=== PATIENT | female | born 1985 | race Caucasian/White ===

== ENCOUNTER 2017-04-06 02:15 | Inpatient (IN) | payer BC ==
[2017-04-06] MEDS ORDERED: TERBUTALINE 1 MG/ML VIAL SQ PRN (03:00)
[2017-04-06] MEDS ORDERED: CARBOPROST TROMETHAMINE 250 MCG/ML 1 ML AMP IM PRN (03:00)
[2017-04-06] MEDS ORDERED: LIDOCAINE 1% (PF) 10 MG/ML (30 ML SDV) SQ PRN (03:00)
[2017-04-06] MEDS ORDERED: OXYTOCIN 10 UNIT/ML 1 ML VIAL IM PRN (03:00)
[2017-04-06] MEDS ORDERED: OXYTOCIN 20 UNITS/1000 ML NS 1,000 ML IV SCH ×2 (03:00→16:45)
[2017-04-06] MEDS ORDERED: PENICILLIN G POTASSIUM 5,000,000 UNIT in DEXTROSE 5% IN WATER 100 ML IVPB STA ×2 (03:00)
[2017-04-06] MEDS ORDERED: METHYLERGONOVINE 0.2 MG/ML 1 ML AMP IM PRN (03:00)
[2017-04-06] MEDS: LACTATED RINGERS 1,000 ML IV SCH (03:46)
[2017-04-06 03:56] VITALS: BMI 27.2
[2017-04-06 03:57] LABS: Anisocytosis Slight; Basophils % (A) 0 %; CH 26.4; CHCM 32.3; Eosinophils # (A) 0.2 k/uL (0-0.7); Eosinophils % (A) 1 %; HDW 2.59; HGB 10.3 gm/dL (11.4-16.0); Luc # (Auto) 0.17; Luc % (Auto) 1; Lymphocytes # (A) 1.5 k/uL (1.0-4.8); Lymphocytes % (A) 10 %; MCH 26.5 pg (25.0-35.0); MCHC 32.2 g/dL (31.0-37.0); MCV 82.2 fL (80.0-100.0); Mean Platelet Volume 8.7; Monocytes % (A) 7 %; Neutrophils # (A) 12.4 k/uL (1.3-7.7); Neutrophils % (A) 81 %; RDW 16.5 % (11.5-15.5); WBC 15.3 k/uL (3.8-10.6)
[2017-04-06] MEDS ORDERED: BUTORPHANOL 1 MG/ML 1 ML VIAL IV PRN (05:40)
--- NOTE | 2017-04-06 05:40 | P.HPOB ---
History of Present Illness H&P Date: 04/06/17 Chief Complaint: 36-6/7 weeks, spontaneous rupture of membranes The patient is a 31-year-old 8 para 2051 admitted at 36-6/7 weeks as established by last menstrual period and confirmed by second trimester ultrasound. Her has been uncomplicated to this point though she is known to be group B strep positive. She presents to labor and delivery with concerns for rupture of membranes which is confirmed in triage. The at the time of admission, she was having minimal contractions. From a status standpoint, all signs reassuring. Obstetrical history: 8 para 2051 with 2 term vaginal deliveries without complications. She also has had 5 previous early losses, one of which was an ectopic for which she underwent salpingectomy. D&C was carried out on at least 2 occasions. Current statistics are listed in history present illness. EDC of 04/28/2017 was established by last menstrual period and confirmed by a second trimester ultrasound. Laboratory workup demonstrates a blood type of O+ with a negative antibody screen. Rubella status is immune. Remainder of her laboratory workup was within normal limits. One hour Glucola was normal and group B strep status is positive. Gynecologic history: Unremarkable with no history of any infections to include STDs. Review of Systems Review of systems is confined to history of present illness. Past Medical History Past Medical History: No Reported History Additional Past Medical History / Comment(s): ectopic History of Any Multi-Drug Resistant Organisms: None Reported Additional Past Surgical History / Comment(s): fallopian tube removed Past Anesthesia/Blood Transfusion Reactions: No Reported Reaction Past Psychological History: Anxiety, Depression Smoking Status: Former smoker Past Alcohol Use History: None Reported Past Drug Use History: None Reported - Past Family History Mother Family Medical History: No Reported History Medications and Allergies Home Medications Medication Instructions Recorded Confirmed Type Pnv,Calcium 72/Iron/Folic Acid 1 tab DAILY 04/06/17 04/06/17 History [ Plus Tablet] Allergies Allergy/AdvReac Type Severity Reaction Status Date / Time codeine Allergy Unknown Verified 04/06/17 02:34 Exam - Vital Signs Vital signs: Vital Signs Temp Pulse Resp BP Pulse Ox 04/06/17 02:59 98.6 F 100 16 131/61 100 04/06/17 02:55 98.6 F 100 16 131/61 100 Intake and Output 04/05/17 04/05/17 04/06/17 14:59 22:59 06:59 Other: Weight 76.657 kg Patient Weight 04/06/17 06:59 Weight 76.657 kg In general, this is a well-developed, well-nourished white female in no acute distress. Her heart has a regular rhythm and rate without murmur. Her lungs are clear to auscultation bilaterally in all rodriguez. Her abdomen is gravid, nondistended, has normal active bowel sounds, is soft, nontender, and without any palpable masses aside from the uterine fundus. Her extremities are without any cyanosis, clubbing, or significant edema and are nontender to palpation bilaterally. Digital cervical examination performed by the nursing staff demonstrates her cervix to be 1 cm dilated, 60% effaced, with the vertex in presentation at -2 station. Spontaneous rupture of membranes is confirmed. Results Result Diagrams: 04/06/17 03:35 Abnormal Lab Results - Last 24 Hours (Table) 04/06/17 Range/Units 03:35 WBC 15.3 H (3.8-10.6) k/uL Hgb 10.3 L (11.4-16.0) gm/dL Hct 32.0 L (34.0-46.0) % RDW 16.5 H (11.5-15.5) % Neutrophils # 12.4 H (1.3-7.7) k/uL Assessment and Plan (1) premature rupture of membranes Current Visit: Yes Status: Acute Code(s): O42.919 - PRETRM EDIN ROM, UNSP TIME BETW RUPT AND ONST LABR, UNSP TRI SNOMED Code(s): 398332588 (2) Group B streptococcal infection in Current Visit: Yes Status: Acute Code(s): O98.819 - OTH MATERNAL INFEC/ PARASTC DISEASES COMP PREG, UNSP TRI; B95.1 - STREPTOCOCCUS, GROUP B, CAUSING DISEASES CLASSD ELSWHR SNOMED Code(s): 393920118 Plan: Antibiotic prophylaxis has been started for group B strep. She was observed for several hours before spontaneous onset of labor. As this has not occurred, Pitocin augmentation has been started. She will continue to have close maternal and surveillance and expectant management will be practiced. She is a good candidate for either IV or epidural analgesia, whichever she may choose.
[2017-04-06] MEDS: PENICILLIN G POTASSIUM 2,500,000 UNIT in DEXTROSE 5% IN WATER 100 ML IVPB SCH ×6 (07:31→15:25)
[2017-04-06] MEDS ORDERED: SODIUM CHLORIDE 0.9% 100 ML BAG ONE (13:50)
[2017-04-06] MEDS ORDERED: fentaNYL (PF) 50 MCG/ML 5 ML AMP ONE (13:50)
[2017-04-06] MEDS ORDERED: BUPIVACAINE (PF) 0.25% 30 ML VIAL ONE (13:50)
[2017-04-06] MEDS ORDERED: diphenhydrAMINE 50 MG/ML 1 ML VIAL IVP PRN ×2 (16:45)
[2017-04-06] MEDS ORDERED: BENZOCAINE/MENTHOL SPRAY 1 GM/SPRAY AEROSOL TOPICAL PRN (16:45)
[2017-04-06] MEDS ORDERED: diphenhydrAMINE 50 MG CAP PO PRN (16:45)
[2017-04-06] MEDS ORDERED: ACETAMINOPHEN TAB 325 MG TAB PO PRN (16:45)
[2017-04-06] MEDS ORDERED: LANOLIN CREAM 5 GM TUBE TOPICAL PRN (16:45)
[2017-04-06] MEDS ORDERED: WITCH HAZEL 1 EACH MED..PAD TOPICAL PRN (16:45)
[2017-04-06] MEDS ORDERED: ZOLPIDEM 5 MG TAB PO PRN (16:45)
[2017-04-06] MEDS ORDERED: HYDROCORTISONE 2.5% RECTAL CREAM 30 GM TUBE RECTAL PRN (16:45)
[2017-04-06] MEDS ORDERED: diphenhydrAMINE 25 MG CAP PO PRN (16:45)
[2017-04-06] MEDS ORDERED: SIMETHICONE 80 MG CHEWABLE PO PRN (16:45)
--- NOTE | 2017-04-06 16:53 | P.PROBDLV ---
Vaginal Delivery Note - . Vaginal Delivery Note: Pt progressed to complete and began pushing over intact perineum. Pre op Dx: IUP 36 6/7, SROM, GBS pos Post op dx: same Procedure: , pitocin induction of labor surgeon Aura Strong DO anesthesia: epidural EBL; 200cc Findings: male infant in OA presentation, wt 7-3 @ 16:31 apgars 9,9 at 1 and 5 mins respectively. "louise" placenta delivered spontaneously with 3VC. Mother and tolerated delivery well Specimen;none complications; none
[2017-04-06] MEDS: IBUPROFEN 600 MG TAB PO PRN (19:29)
[2017-04-06] MEDS: SENNOSIDES-DOCUSATE SODIUM 1 EACH TAB PO SCH (20:15)
[2017-04-07] MEDS: IBUPROFEN 600 MG TAB PO PRN (06:50)
[2017-04-07] MEDS: SENNOSIDES-DOCUSATE SODIUM 1 EACH TAB PO SCH ×2 (08:58→20:37)
--- NOTE | 2017-04-07 10:18 | P.PNOBGVD ---
Subjective - Subjective Principal diagnosis: PPD #1 Interval history: Sarah is PPD #1 , she is feeling well, no concerns. she is without difficulty, lochia is minimal. she is ambulating and voiding without difficulty. pain is controlled with oral medications. she states they are watching louise due to blood in his stools. he had some blood in his meconium. he is doing well otherwise. Patient reports: Reports appetite normal, Reports voiding normally, Reports pain well controlled, Reports ambulating normally : doing well (they are watching his stools secondary to blood. he is at the bedside with mom) Objective - Latest Vital Signs Latest vital signs: Vital Signs Temp Pulse Resp BP BP Pulse Ox 04/07/17 08:00 85 18 97/63 96 04/07/17 04:00 98.2 F 70 16 95/55 04/07/17 00:00 98.4 F 78 16 95/58 04/06/17 20:00 98.8 F 80 16 102/58 04/06/17 18:39 82 16 99/51 04/06/17 18:15 86 16 103/60 04/06/17 17:45 68 16 97/47 04/06/17 17:30 81 16 99/57 04/06/17 17:15 84 16 100/69 04/06/17 17:00 77 16 104/54 04/06/17 16:45 98.2 F 90 16 124/58 Intake and Output 04/06/17 04/07/17 04/07/17 22:59 06:59 14:59 Other: # Voids 1 1 - Exam Extremities: Present: normal Abdomen: Present: normal appearance Uterus: Present: firm Assessment and Plan (1) Group B streptococcal infection in Current Visit: Yes Status: Acute Code(s): O98.819 - OTH MATERNAL INFEC/ PARASTC DISEASES COMP PREG, UNSP TRI; B95.1 - STREPTOCOCCUS, GROUP B, CAUSING DISEASES CLASSD ELSWHR SNOMED Code(s): 728563005 (2) premature rupture of membranes Narrative/Plan: will continue current PP care. she does desire circumcision if peds clears louise Current Visit: Yes Status: Acute Code(s): O42.919 - PRETRM EDIN ROM, UNSP TIME BETW RUPT AND ONST LABR, UNSP TRI SNOMED Code(s): 796920180
[2017-04-07] MEDS: LACTATED RINGERS 1,000 ML IV SCH ×2 (20:35→20:36)
[2017-04-07] MEDS: PENICILLIN G POTASSIUM 2,500,000 UNIT in DEXTROSE 5% IN WATER 100 ML IVPB SCH ×2 (20:38)
[2017-04-08] MEDS: SENNOSIDES-DOCUSATE SODIUM 1 EACH TAB PO SCH (08:35)
--- NOTE | 2017-04-08 10:29 | P.DS ---
Providers Date of admission: 04/06/17 02:43 Expected date of discharge: 04/08/17 Attending physician: Alyx Mercado Primary care physician: Stated None - Discharge Diagnosis(es) (1) premature rupture of membranes Current Visit: Yes Status: Acute (2) Group B streptococcal infection in Current Visit: Yes Status: Acute (3) Normal spontaneous vaginal delivery Current Visit: Yes Status: Acute Hospital Course: The patient is a 31-year-old 8 para 2051 admitted at 36-6/7 weeks by good dating parameters perches admitted with documented spontaneous rupture of membranes for clear fluid. She presented with minimal contractions and all signs reassuring. Her was otherwise uncomplicated though she was group B strep positive. As result, she had antibiotic prophylaxis started. As she made no significant progress over the first several hours of her admission and the first dose of antibiotics had been completely infused, Pitocin augmentation was added. She then made fairly steady progress throughout the day. An epidural catheter was placed for analgesia and she ultimately progressed to complete and then pushed fairly quickly to a normal spontaneous vaginal delivery of a viable 7 lbs. 3 oz. baby boy with Apgars of 9 at 1 minute and 9 at 5 minutes. Her course was essentially unremarkable with vital signs remaining stable and her temperature was afebrile throughout. The was noted to have some blood in stools and some coffee grounds discharge on suctioning of the stomach. At the time of delivery, the amniotic membranes appeared to be still intact in front of the head and were ruptured artificially demonstrating some bloody fluid. As result of these findings, the 's concerns were thought to be secondary to a possible undiagnosed marginal abruption of placenta. In either case, the patient was deemed stable for discharge on day #2 and was discharged home to follow-up in the office in 6 weeks' time routinely. Discharge instructions included calling for any significantly increased bleeding or foul-smelling lochia, fever, abdominal pain, perineal complaints, breast complaints, or anything else that concerned her. She was additionally instructed to have nothing in the vagina for at least 6 weeks time to include intercourse. She understood her instructions and agrees to follow up as noted above. Discharge medications included continued vitamins as she has opted to breast-feed. She was otherwise to use [id number] analgesic pain medications as needed. Maternal blood type is O + and rubella status is immune. Procedures: #1. Antibiotic prophylaxis #2. Epidural analgesia #3. Pitocin augmentation # 4. Normal spontaneous vaginal delivery Patient Condition at Discharge: Good Plan - Discharge Summary New Discharge Prescriptions: No Action Pnv,Calcium 72/Iron/Folic Acid [ Plus Tablet] 1 tab DAILY Discharge Medication List Pnv,Calcium 72/Iron/Folic Acid [ Plus Tablet] 1 tab DAILY 04/06/17 [ History] Follow up Appointment(s)/Referral(s): Alyx Mercado MD [STAFF PHYSICIAN] - 6 Weeks Discharge Disposition: HOME SELF-CARE
[2017-04-08 16:26] VITALS: BP 106/62; PULSE 81; RESP 17; TEMP 98.5
== END 2017-04-08 20:15 | disposition home or self-care (01) | DRG 775 ==
LOC: FBPOP 02:15 → 4FBP 02:43
PROVIDERS: ADMIT Obstetrics & Gynecology; ATTEND Obstetrics & Gynecology
PROC: 10E0XZZ Delivery of Products of Conception, External Approach (ICD-10-PCS; principal; 2017-04-06)
PROC: 3E0R3BZ Introduction of Anesthetic Agent into Spinal Canal, Percutaneous Approach (ICD-10-PCS; principal; 2017-04-06)
PROC: 00HU33Z Insertion of Infusion Device into Spinal Canal, Percutaneous Approach (ICD-10-PCS; principal; 2017-04-06)
DX: O42.913 Preterm premature rupture of membranes, unspecified as to length of time between rupture and onset of labor, third trimester (principal); O26.20 Pregnancy care for patient with recurrent pregnancy loss, unspecified trimester; Z37.0 Single live birth; O99.824 Streptococcus B carrier state complicating childbirth; Z3A.36 36 weeks gestation of pregnancy; Z87.891 Personal history of nicotine dependence; Z88.5 Allergy status to narcotic agent
CPT/HCPCS: 59025; 84112; 85025; 88307; 99213

== ENCOUNTER → 2020-08-24 | Outpatient (CLI) | payer BC ==
--- NOTE | 2020-08-25 11:42 | MM ---
Reason for exam: screening (asymptomatic). Baseline mammogram. History: Family history of breast cancer in maternal grandmother at age 82. Took hormonal contraceptives for 7 years. Physical Findings: Nurse did not find any significant physical abnormalities on exam. MG Screening Mammo w CAD Bilateral CC and MLO view(s) were taken. The breast tissue is heterogeneously dense. This may lower the sensitivity of mammography. Grouped calcifications on the right 11-12 o'clock position. Otherwise, no discrete abnormality. These results were verbally communicated with the patient and result sheet given to the patient on 08/24/20. ASSESSMENT: Incomplete: need additional imaging evaluation, BI-RAD 0 RECOMMENDATION: Special view mammogram of the right breast. (magnification)
--- NOTE | 2020-08-25 11:44 | MM ---
Reason for exam: additional evaluation requested from abnormal screening. History: Family history of breast cancer in maternal grandmother at age 82. Took hormonal contraceptives for 7 years. Physical Findings: Breast exam preformed at baseline screening. MG Work Up Mamm w CAD RT Spot compression CC with magnification, spot compression MLO with magnification, and ML view(s) were taken of the right breast. The breast tissue is heterogeneously dense. This may lower the sensitivity of mammography. Grouped punctate calcifications 11 o'clock right breast, biopsy recommended. These results were verbally communicated with the patient and result sheet given to the patient on 08/24/20. ASSESSMENT: Suspicious, BI-RAD 4 RECOMMENDATION: Stereotactic core biopsy of the right breast. Called Dr. Mercado's office with mammographic findings and has scheduled an appointment for the patient for 10/08/20 at 11:[address] Mao. Biopsy scheduled for 09/02/20 at 8:00. PRELIMINARY REPORT CALLED AND FAXED TO DR. MAO ON 08/24/20.
== END | disposition home or self-care (01) ==
LOC: RADMAMWWP 12:57
PROVIDERS: ATTEND Obstetrics & Gynecology
DX: Z12.31 Encounter for screening mammogram for malignant neoplasm of breast (principal); Z78.0 Asymptomatic menopausal state
CPT/HCPCS: 77065; 77067

== ENCOUNTER → 2020-09-02 | Day surgery (SDC) | payer BC ==
[2020-09-02 07:19] VITALS: RESP 16
[2020-09-02 09:03] VITALS: BP 103/60; PULSE 60; TEMP 98.2
--- NOTE | 2020-09-02 16:13 | MM ---
EXAMINATION TYPE: MG stereo VAD BX RT DATE OF EXAM: 09/02/2020 COMPARISON: NONE CLINICAL HISTORY: Abnormal mammogram calcifications TECHNIQUE: Stereotactic guided core biopsy of right breast. FINDINGS: The procedure of stereotactic guided core biopsy was explained to the patient. Benefits, a lternatives, and risks were discussed. An informed consent was then obtained. The [facility] pathway for biopsy was chosen. Targeting and the procedure were performed by radiology. A vacuum assisted biopsy gun was used to obtain multiple core samples. 6 samples were obtained with a petite needle. Specimen: Specimen mammogram demonstrates calcifications within the specimen. Procedure mammogram: The procedure mammogram demonstrates the core biopsy marker in the prior calcifi cation region. Discharge instructions were discussed with the patient. The patient follow up with physician results. IMPRESSION: 1. Successful stereotactic right breast core biopsy. Recommendation: 1. Recommendations are pending pathology results.
== END ==
LOC: RADMAMWWP 07:03
PROVIDERS: ATTEND Surgery
DX: N60.81 Other benign mammary dysplasias of right breast (principal); R92.0 Mammographic microcalcification found on diagnostic imaging of breast; R92.8 Other abnormal and inconclusive findings on diagnostic imaging of breast
CPT/HCPCS: 88305; 19081; A4648; J2001

== ENCOUNTER → 2021-03-29 | Outpatient (CLI) | payer BC ==
--- NOTE | 2021-03-30 07:34 | MM ---
Reason for exam: follow-up at short interval from prior study. Last mammogram was performed 7 months ago. History: Family history of breast cancer in maternal grandmother at age 82. Benign MG stereo VAD BX RT of the right breast, September 02, 2020. Took hormonal contraceptives for 7 years. Physical Findings: Nurse did not find any significant physical abnormalities on exam. MG Diagnostic Mammo RT w CAD CC and MLO view(s) were taken of the right breast. Prior study comparison: August 24, 2020, right breast MG work up mamm w CAD RT. August 24, 2020, bilateral MG screening mammo w CAD. The breast tissue is heterogeneously dense. This may lower the sensitivity of mammography. Benign appearing calcifications in the right breast. Previous mammotome biopsy in the right breast. No significant new findings when compared with previous films. These results were verbally communicated with the patient and result sheet given to the patient on 03/29/21. ASSESSMENT: Benign, BI-RAD 2 RECOMMENDATION: Return to routine screening mammogram schedule for both breasts. Back on schedule for August 2021.
== END | disposition home or self-care (01) ==
LOC: RADMAMWWP 14:57
PROVIDERS: ATTEND Surgery
DX: R92.1 Mammographic calcification found on diagnostic imaging of breast (principal); Z80.3 Family history of malignant neoplasm of breast
CPT/HCPCS: 77065

== ENCOUNTER → 2022-02-17 | Outpatient (CLI) | payer BC ==
--- NOTE | 2022-02-18 07:27 | MM ---
Reason for Exam: Screening (asymptomatic). Last mammogram was performed 1 year(s) and 5 month(s) ago. Patient History: Menarche at age 10. First Full-Term at age 28. Patient has history of breast feeding. Patient used Hormonal Contraceptives for 7 years. 09/02/2020, Benign Core Biopsy on the right side. Maternal grandmother had breast cancer, age 82. Last menstrual period: 02/15/2022 Risk Values: Mable 5 year model risk: 0.8%. NCI Lifetime model risk: 15.0%. Prior Study Comparison: 08/24/2020 Bilateral Screening Mammogram, [facility]. 08/24/2020 Right Diagnostic Mammogram, [facility]. 03/29/2021 Right Diagnostic Mammogram, [facility]. Tissue Density: The breast tissue is extremely dense which could obscure a lesion on mammography. Findings: Analyzed By CAD. There is no suspicious group of microcalcifications or new suspicious mass in either breast. Overall Assessment: Benign, BI-RAD 2 Management: Screening Mammogram of both breasts in 1 year. A clinical breast exam by your physician is recommended on an annual basis and results should be correlated with mammographic findings. Electronically signed and approved by: Ken Cabrera M.D. Radiologis
== END | disposition home or self-care (01) ==
LOC: RADMAMWWP 13:49
PROVIDERS: ATTEND Family Medicine
DX: Z12.31 Encounter for screening mammogram for malignant neoplasm of breast (principal); Z80.3 Family history of malignant neoplasm of breast; Z98.890 Other specified postprocedural states
CPT/HCPCS: 77063; 77067

== ENCOUNTER → 2023-04-04 | Outpatient (CLI) | payer BC ==
--- NOTE | 2023-04-05 20:12 | MM ---
Reason for Exam: Screening (asymptomatic). Last mammogram was performed 1 year(s) and 2 month(s) ago. Patient History: Menarche at age 10. First Full-Term at age 28. Premenopausal. Patient has history of breast feeding. Patient used Hormonal Contraceptives for 7 years. 09/02/2020, Benign Core Biopsy on the right side. Maternal grandmother had breast cancer, age 82. Last menstrual period: 02/26/2023 Risk Values: Mable 5 year model risk: 0.9%. NCI Lifetime model risk: 14.9%. Prior Study Comparison: 08/24/2020 Right Diagnostic Mammogram, [facility]. 03/29/2021 Right Diagnostic Mammogram, [facility]. 02/17/2022 Bilateral MG 3D screening mammo w/cad, [facility]. Tissue Density: The breast tissue is extremely dense which could obscure a lesion on mammography. Findings: Analyzed By CAD. Unchanged regional punctate calcifications on the right. Microclip in this region from prior biopsy. There is no suspicious group of microcalcifications or new suspicious mass in either breast. Overall Assessment: Benign, BI-RAD 2 Management: Screening Mammogram of both breasts in 1 year. Given the patient's dense breast tissue, consideration can be given to supplementary screening with breast ultrasound. Patient should continue monthly self-breast exams. A clinical breast exam by your physician is recommended on an annual basis. This exam should not preclude additional follow-up of suspicious palpable abnormalities. Note on Mable scores and lifetime risk: 1. A Mable score greater than 3% is considered moderate risk. If this is the case, consider specialist referral to assess eligibility for a risk reducing agent. 2. If overall lifetime risk for the development of breast cancer is 20% or higher, the patient may qualify for future screening with alternating mammogram and breast MRI. Electronically signed and approved by: Cr Salas M.D. Radiologist
== END | disposition home or self-care (01) ==
LOC: RADMAMWWP 14:05
PROVIDERS: ATTEND Family Medicine
DX: Z12.31 Encounter for screening mammogram for malignant neoplasm of breast (principal); Z80.3 Family history of malignant neoplasm of breast
CPT/HCPCS: 77063; 77067

== ENCOUNTER → 2023-04-28 | Outpatient (CLI) | payer BC ==
--- NOTE | 2023-04-29 11:31 | MR ---
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 TECHNIQUE: Multi planar, multi sequence imaging was performed through the brain including: T1, T2, In version recovery, Diffusion weighted imaging, and gradient echo imaging. No gadolinium was given. FINDINGS: The bravo-white junctions, ventricular system, and cisterns appear unremarkable. Midline structures sh ow no abnormality. Diffusion-weighted imaging shows no evidence of restricted diffusion. The suscepti bility weighted images do not reveal any evidence for micro-hemorrhage. The bone marrow signal is within normal limits. Paranasal sinuses and mastoid air cells: Moderate paranasal sinus disease with high T2 signal mucosal thickening within the maxillary sinuses Visualized orbits: Orbital contents are intact. IMPRESSION: 1. No evidence of intracranial mass or acute/subacute infarct. 2. Mild paranasal sinus disease.
== END | disposition home or self-care (01) ==
LOC: RADMRIMAIN 06:30
PROVIDERS: ATTEND Family Medicine
DX: R90.82 White matter disease, unspecified (principal); J34.89 Other specified disorders of nose and nasal sinuses
CPT/HCPCS: 70551

== ENCOUNTER → 2024-04-12 | Outpatient (CLI) | payer BC ==
--- NOTE | 2024-04-16 13:02 | MM ---
Reason for Exam: Screening (asymptomatic). Last screening mammogram was performed 12 month(s) ago. Patient History: Menarche at age 10. First Full-Term at age 28. Premenopausal. Patient has history of breast feeding. Patient used Hormonal Contraceptives for 7 years. 09/02/2020, Benign Core Biopsy on the right side. Maternal grandmother had breast cancer, age 82. Last menstrual period: 04/11/2024 Risk Values: Mable 5 year model risk: 1.0%. NCI Lifetime model risk: 14.8%. Prior Study Comparison: 03/29/2021 Right Diagnostic Mammogram, [facility]. 02/17/2022 Bilateral MG 3D screening mammo w/cad, [facility]. 04/04/2023 Bilateral MG 3D screening mammo w/cad, [facility]. Tissue Density: The breasts are extremely dense, which lowers the sensitivity of mammography. Findings: Analyzed By CAD. There is no suspicious group of microcalcifications or new suspicious mass in either breast. Benign-appearing calcifications. Overall Assessment: Benign, BI-RAD 2 Management: Screening Mammogram of both breasts in 1 year. . Patient should continue monthly self-breast exams. A clinical breast exam by your physician is recommended on an annual basis. This exam should not preclude additional follow-up of suspicious palpable abnormalities. Note on Mable scores and lifetime risk: 1. A Mable score greater than 3% is considered moderate risk. If this is the case, consider specialist referral to assess eligibility for a risk reducing agent. 2. If overall lifetime risk for the development of breast cancer is 20% or higher, the patient may qualify for future screening with alternating mammogram and breast MRI. [facility], , 04/16/2024 12:59 PM. Electronically signed and approved by: Rafael Guzmán M.D. Radiologis
== END | disposition home or self-care (01) ==
LOC: RADMAMWWP 16:25
PROVIDERS: ATTEND Surgery
DX: Z12.31 Encounter for screening mammogram for malignant neoplasm of breast (principal); Z80.3 Family history of malignant neoplasm of breast; R92.343 Mammographic extreme density, bilateral breasts
CPT/HCPCS: 77063; 77067